=== PATIENT | female | born 1990 | race Caucasian/White ===

== ENCOUNTER 2019-11-05 08:26 | Outpatient (REF) | payer SELFPAY ==
[2019-11-05 09:05] LABS: Hepatitis B Surface AB. 14.9 (0-8.5)
[2019-11-05 09:06] LABS: Rubella IgG 69.1 IU/mL (0.0-9.0)
[2019-11-07 14:01] LABS: Quantiferon Nil 0.03 IU/mL; Quantiferon Plus TB1 0.01 IU/mL; Quantiferon Plus TB2 0.01 IU/mL; Quantiferon TB Gold NEGATIVE (NEGATIVE)
== END 2019-11-05 08:27 | disposition home or self-care (01) ==
LOC: LAB 08:26
PROVIDERS: Family Provider Nurse Practitioner; PCP Nurse Practitioner
DX: Z01.89 Encounter for other specified special examinations (principal)
CPT/HCPCS: 86480; 86706; 86735; 86762; 86765; 86787

== ENCOUNTER 2020-03-23 12:18 | Outpatient (CLI) | payer SELFPAY ==
--- NOTE | 2020-03-23 12:23 | XR_ITS ---
WS: [id number] LUMBAR SPINE TECHNIQUE: 3 views of the lumbar spine CLINICAL INFORMATION: ACUTE BACK PAIN/ACUTE SACROILITIS COMPARISON: None. FINDINGS: Mild lumbar curve convex left. Five [id number] lumbar vertebral bodies. Disc space heights are well preserved. No compression f ractures. No spondylolisthesis. Mild facet arthropathy L5-S1. Partially visualized acetabular repair. Visualized sacroiliac joints are normal. Normal visualized soft tissues. Partially visualized bowel g as pattern is normal. XR/XR lumbar spine 2-3V* [id number] IMPRESSION: 1. Mild lumbar curve convex left. Lumbar spine is unremarkable. 2. Normal sacroiliac joints..
== END 2020-03-23 12:19 | disposition home or self-care (01) ==
LOC: RADWPI 12:21
PROVIDERS: Family Provider Electrodiagnostic Medicine; PCP Electrodiagnostic Medicine; Visit Provider Electrodiagnostic Medicine
DX: M54.9 Dorsalgia, unspecified (principal); M46.1 Sacroiliitis, not elsewhere classified
CPT/HCPCS: 72100

== ENCOUNTER → 2020-05-04 09:47 | Outpatient (BNVA) | payer SELFPAY | PROVIDERS: Family Provider Electrodiagnostic Medicine; PCP Electrodiagnostic Medicine; Visit Provider Obstetrics & Gynecology | DX: Z12.4 Encounter for screening for malignant neoplasm of cervix (principal); R10.31 Right lower quadrant pain | CPT/HCPCS: 88175 ==

== ENCOUNTER → 2020-06-27 15:11 | Outpatient (BNVA) | payer SELFPAY | PROVIDERS: Family Provider Electrodiagnostic Medicine; PCP Electrodiagnostic Medicine; Visit Provider Obstetrics & Gynecology | DX: N84.0 Polyp of corpus uteri (principal); N83.201 Unspecified ovarian cyst, right side | CPT/HCPCS: 76830 ==

== ENCOUNTER 2020-07-01 17:41 | Emergency (ER) | payer SELFPAY ==
[2020-07-01 18:04] VITALS: BP 144/91; PULSE 84; RESP 18; TEMP 37.1; O2SAT 98; BMI 34.9
[2020-07-01 20:11] LABS: Add Urine Microscopic? NO
[2020-07-01 20:12] LABS: Basophils % 0.3 %; Eosinophils # 0.2 10^3/uL (0.0-0.8); Eosinophils % 2.9 %; Hemoglobin 12.3 g/dL (11.5-15.3); Lymphocytes # 2.2 10^3/uL (0.8-4.8); Lymphocytes % 29.1 %; Mean Corpuscular HGB Conc 32.4 g/dL (30.0-36.0); Mean Corpuscular Hemoglobin 27.5 pg (28.0-34.0); Mean Platelet Volume 11.3 fL (7.4-10.4); Monocytes # 0.5 10^3/uL (0.2-0.9); Monocytes % 6.8 %; Neutrophils # 4.52 10^3/uL (1.8-7.7); Neutrophils % 60.6 %; Nucleated Red Blood Cells % 0 %; Platelet Count 287 10^3/cmm (130-400); Red Blood Count 4.47 10^6/uL (4.1-5.3); Red Cell Distribution Width 13.9 % (12.1-15.1); White Blood Count 7.5 10^3/uL (4.0-10.0)
[2020-07-01 20:14] LABS: Bilirubin Urine Neg (Negative); Blood Urine Neg (Negative); Glucose Urine UA Norm (Normal); Ketones Urine Negative (Negative); Leukocyte Esterase Urine Negative (Negative); Nitrate Urine Negative (Negative); Protein Urine Neg (Negative); Specific Gravity, Urine 1.015 (1.005-1.030); Urine Appearance Clear (CLEAR); Urine Color Yellow (Yellow); Urobilinogen Urine 1 mg/dL (Negative); pH Urine 7 (5-7)
--- NOTE | 2020-07-01 20:16 | CTR_ITS ---
PROCEDURE INFORMATION: Exam: CT Abdomen And Pelvis With Contrast Exam date and time: 07/01/2020 8:50 PM Age: 30 years old Clinical indication: Abdominal pain; Localized; Right lower quadrant (rlq); Prior surgery; Surgery type: Csection. Pelvic fixation; Patient HX: Transient rlq pain. ; Additional info: Abd pain TECHNIQUE: Imaging protocol: Computed tomography of the abdomen and pelvis with intravenous contrast. Axial, coronal and sagittal reformatted images were created and reviewed. Radiation optimization: All CT scans at this facility use at least one of these dose optimization techniques: automated exposure control; mA and/or kV adjustment per patient size (includes targeted exams where dose is matched to clinical indication); or iterative reconstruction. Contrast material: OMNI 300; Contrast volume: 95 ml; Contrast route: INTRAVENOUS (IV); COMPARISON: CT abdomen pelvis w con* [id number] 08/16/2014 11:16 PM RADIATION DOSE METRICS: Total DLP (mGy-cm): 1523.16 FINDINGS: Liver: Mild hepatomegaly. Mild hepatic steatosis. Gallbladder and bile ducts: No radiodense gallstones. No biliary ductal dilatation. Pancreas: Unremarkable. Spleen: Unremarkable. Adrenals: Unremarkable. Kidneys and ureters: 1.2 cm simple left renal cyst (no follow-up is indicated based on the imaging appearance). No radiodense calculi. No hydronephrosis. Stomach and bowel: No bowel wall thickening. No obstruction. No pneumatosis. Appendix: Normal. Intraperitoneal space: No free fluid. No organized fluid collection. No free air. Vasculature: Unremarkable. No aneurysm. Lymph nodes: No pathologically enlarged lymph nodes. Urinary bladder: Unremarkable as visualized. Reproductive: Unremarkable. Bones/joints: No acute osseous abnormality. Soft tissues: Unremarkable. CT/CT abdomen pelvis w con* [id number]: 1[address] No CT evidence of acute intra-abdominal or pelvic pathology. 2. Additional findings, as above. COMMENTS: Consistent with the [place]'s Incidental Findings Committee white paper (J Am Eliseo Radiol 2018): Any incidental renal lesion less than 1 cm or classified as too small to characterize, or any incidental cystic renal lesion characterized as simple-appearing, is likely benign. No follow-up imaging is recommended for these lesions per consensus recommendations based on imaging criteria. Radiation Dose CTDIVOL = (mGy): DLP = 1523.16 (mGy-cm)
[2020-07-01 20:28] LABS: Alanine Aminotransferase 39 U/L (0-33); Albumin Level 4.7 g/dL (3.5-5.2); Alkaline Phosphatase 98 IU/L (35-105); Anion Gap 14.7 (5-19); Aspartate Amino Transferase 31 U/L (0-32); Blood Urea Nitrogen 10 mg/dL (6-20); Calcium 9.9 mg/dL (8.5-10.5); Carbon Dioxide 27 mmol/L (22-29); Chloride 100 mmol/L (98-107); Glomerular Filtration Rate 117.4 mL/min (90-130); Glucose 95 mg/dL (65-115); Lipase 42 U/L (13-60); Osmolality Calculated 285 mOsm/kg (285-295); Potassium 3.7 mmol/L (3.5-5.1); Sodium 138 mmol/L (136-145); Total Bilirubin 0.2 mg/dL (0.15-1.2); Total Protein 7.7 g/dL (6.6-8.7)
[2020-07-01 20:29] LABS: HCG, Serum Qual Negative (Negative)
[2020-07-01 20:31] VITALS: RESP 16
[2020-07-01] MEDS: ondansetron 2 mg/ML SDV 2 mL 4 MG IVP (20:31)
[2020-07-01] MEDS: morphine 4 mg/mL SDV 1 mL IVP ×2 (20:31→21:43)
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
[2020-07-01] MEDS: iohexol 300 mg/mL 100 mL Btl IV (20:51)
[2020-07-01 21:43] VITALS: RESP 16
[2020-07-01 21:44] VITALS: BP 132/82; PULSE 77; RESP 16; O2SAT 99
--- NOTE | 2020-07-04 10:24 | DCPLANNER ---
zone manager had message to schedule a follow up appointment for patient with general surgery. zone manager called [facility], spoke with Twyla, gave clinic patients information. zone manager was told that patients information would be printed off and reviewed. Clinic will call patient with appointment information.
--- NOTE | 2020-07-05 08:19 | DCPLANNER ---
Patient has a follow up appointment scheduled for June at 10:[address] Gracia. Clinic will call patient with appointment information.
--- NOTE | 2020-07-22 17:37 | DCPLANNER ---
Patient had a follow up appointment scheduled for 07.07.20 with [facility] - patient did attend appointment.
== END 2020-07-01 21:48 | disposition home or self-care (01) ==
PROVIDERS: Emergency Provider Emergency Medicine; PCP Electrodiagnostic Medicine
DX: R10.31 Right lower quadrant pain (principal); I10 Essential (primary) hypertension
CPT/HCPCS: 12345; 74177; 80053; 81003; 83690; 84703; 85025; 96374; 96375; 96376; 99283; J2270; J2405; Q9967

== ENCOUNTER → 2020-07-26 09:59 | Outpatient (BNVA) | payer OTHER, SELFPAY | PROVIDERS: PCP Electrodiagnostic Medicine; Visit Provider Electrodiagnostic Medicine | DX: Z11.59 Encounter for screening for other viral diseases (principal); R10.31 Right lower quadrant pain | CPT/HCPCS: 87635 ==

== ENCOUNTER → 2020-12-20 09:30 | Outpatient (BNVA) | payer MEDICAID, SELFPAY | PROVIDERS: PCP Electrodiagnostic Medicine; Visit Provider Nurse Practitioner Women's Health | DX: O09.91 Supervision of high risk pregnancy, unspecified, first trimester (principal); O10.919 Unspecified pre-existing hypertension complicating pregnancy, unspecified trimester; O34.219 Maternal care for unspecified type scar from previous cesarean delivery; O99.340 Other mental disorders complicating pregnancy, unspecified trimester; F41.9 Anxiety disorder, unspecified; F32.9 Major depressive disorder, single episode, unspecified; O09.899 Supervision of other high risk pregnancies, unspecified trimester; O21.9 Vomiting of pregnancy, unspecified; O99.211 Obesity complicating pregnancy, first trimester | CPT/HCPCS: 84315; 84702; 87086 ==

== ENCOUNTER → 2020-12-26 00:01 | Outpatient (BNVA) | payer MEDICAID, SELFPAY | PROVIDERS: PCP Electrodiagnostic Medicine; Visit Provider Obstetrics & Gynecology | DX: O10.919 Unspecified pre-existing hypertension complicating pregnancy, unspecified trimester (principal); Z3A.00 Weeks of gestation of pregnancy not specified | CPT/HCPCS: 84156 ==

== ENCOUNTER → 2020-12-28 15:25 | Outpatient (BNVA) | payer MEDICAID, SELFPAY | PROVIDERS: PCP Electrodiagnostic Medicine; Visit Provider Obstetrics & Gynecology | DX: O21.9 Vomiting of pregnancy, unspecified (principal); O10.919 Unspecified pre-existing hypertension complicating pregnancy, unspecified trimester; O09.91 Supervision of high risk pregnancy, unspecified, first trimester; Z3A.00 Weeks of gestation of pregnancy not specified | CPT/HCPCS: 80053; 80307; 82570; 84156; 84315; 84443; 84550; 85027; 86592; 86762; 86803; 86850; 86900; 87340 ==

== ENCOUNTER → 2021-01-04 07:52 | Outpatient (BNVA) | payer MEDICAID, SELFPAY | PROVIDERS: PCP Electrodiagnostic Medicine; Visit Provider Obstetrics & Gynecology | DX: O09.91 Supervision of high risk pregnancy, unspecified, first trimester (principal); O21.9 Vomiting of pregnancy, unspecified; O99.211 Obesity complicating pregnancy, first trimester; O99.340 Other mental disorders complicating pregnancy, unspecified trimester; F32.9 Major depressive disorder, single episode, unspecified; O34.219 Maternal care for unspecified type scar from previous cesarean delivery; O10.919 Unspecified pre-existing hypertension complicating pregnancy, unspecified trimester; O99.019 Anemia complicating pregnancy, unspecified trimester; O10.911 Unspecified pre-existing hypertension complicating pregnancy, first trimester; O99.011 Anemia complicating pregnancy, first trimester; Z3A.13 13 weeks gestation of pregnancy | CPT/HCPCS: 82950; 84132; 84315; 87491; 87591 ==

== ENCOUNTER → 2021-01-17 12:18 | Outpatient (BNVA) | payer BC, MEDICAID, SELFPAY | PROVIDERS: PCP Electrodiagnostic Medicine; Visit Provider Obstetrics & Gynecology | DX: O10.919 Unspecified pre-existing hypertension complicating pregnancy, unspecified trimester (principal); O99.019 Anemia complicating pregnancy, unspecified trimester; D64.9 Anemia, unspecified; O99.211 Obesity complicating pregnancy, first trimester; E66.9 Obesity, unspecified; O09.91 Supervision of high risk pregnancy, unspecified, first trimester; O99.340 Other mental disorders complicating pregnancy, unspecified trimester; F32.9 Major depressive disorder, single episode, unspecified; O34.219 Maternal care for unspecified type scar from previous cesarean delivery; Z3A.00 Weeks of gestation of pregnancy not specified | CPT/HCPCS: 81000 ==

== ENCOUNTER 2021-01-27 13:52 | Outpatient (CLI) | payer BC, MEDICAID, SELFPAY ==
--- NOTE | 2021-01-27 14:15 | USCV_ITS ---
Ruth Murphy Age: 30 Gender: F : 1990 Exam Date: 01/27/2021 14:34 Ordering Phys: Cordell Tucker MD Technologist: Radha Kinsey Exam Location: [facility] Indication: UNSPECIFIED PRE EXISTING HYPERTENSION BP: 120 / 70 HR: 79 Rhythm: Sinus Technical Quality: Adequate MEASUREMENTS (Male / Female) Normal Values 2D ECHO LV Diastolic Diameter PLAX 4.3 cm 4.2 - 5.9 / 3.9 - 5.3 cm LV Systolic Diameter PLAX 2.9 cm IVS Diastolic Thickness 1.3 cm 0.6 - 1.0 / 0.6 - 0.9 cm IVS Systolic Thickness 1.7 cm LVPW Diastolic Thickness 1.5 cm 0.6 - 1.0 / 0.6 - 0.9 cm LVPW Systolic Thickness 1.7 cm LVOT Diameter 2.0 cm LV Ejection Fraction 2D Teich 62.4 % LV Ejection Fraction MOD 2C 70.8 % LV Ejection Fraction 2C AL 70.5 % LA Diameter 3.1 cm LA Width 3.9 cm LA Height 4.8 cm RA Width 3.1 cm RA Height 4.4 cm Aorta at Sinotubular Diameter 2.7 cm M-MODE LV Diastolic Diameter MM 3.9 cm 4.2 - 5.9 / 3.9 - 5.3 cm LV Systolic Diameter MM 2.9 cm LV Ejection Fraction MM Teich 49.7 % IVS Diastolic Thickness MM 4.6 cm 0.6 - 1.0 / 0.6 - 0.9 cm IVS Systolic Thickness MM 1.8 cm LVPW Diastolic Thickness MM 0.8 cm 0.6 - 1.0 / 0.6 - 0.9 cm LVPW Systolic Thickness MM 2.1 cm Aortic Annulus Diameter 2.7 cm LA Ao Ratio MM 1.3 MV E Point Septal Separation 0.4 cm DOPPLER AV Peak Velocity 157.0 cm/s LVOT Peak Velocity 158.3 cm/s AV Area Cont Eq vti 1.8 cm squared AV Area Cont Eq pk 3.2 cm squared MV Area PHT 5.0 cm squared Mitral E to A Ratio 1.3 MV E' Velocity 52.0 cm/s Mitral E to MV E' Ratio 6.1 Mitral E to LV E' Lateral Ratio 5.6 Mitral E to LV E' Septal Ratio 6.6 TR Peak Velocity 340.0 cm/s TR Peak Gradient 46.2 mmHg TV Peak E Velocity 97.0 cm/s Right Atrial Pressure 3.0 mmHg Pulmonary Artery Systolic Pressu 49.2 mmHg PV Peak Velocity 88.0 cm/s RV Acceleration Time 0.1 s RV Ejection Time 0.3 s RV AcT/ET 0.3 FINDINGS Left Ventricle Normal left ventricular cavity size. Normal left ventricular systolic function. No regional wall motion abnormalities. Left ventricular ejection fraction is estimated at 62 %. Normal diastolic function. Right Ventricle The right ventricle is normal in size and function. Right Atrium The right atrium is normal in size. Left Atrium The left atrium is normal in size. Mitral Valve Structurally normal mitral valve without significant stenosis or prolapse. There is no mitral regurgitation. Aortic Valve Mild aortic valve calcification. No aortic valve stenosis. No aortic valve regurgitation. Tricuspid Valve Structurally normal tricuspid valve without significant stenosis or regurgitation. Pulmonary artery systolic pressure is normal. Pulmonic Valve Structurally normal pulmonic valve without significant stenosis. There is no pulmonic regurgitation. Pericardium Normal pericardium without effusion. Aorta Normal ascending aorta dimension. CONCLUSIONS 1-Normal left ventricular cavity size. Normal left ventricular systolic function. No regional wall motion abnormalities. Left ventricular ejection fraction is estimated at 62 %. Normal diastolic function. 2-Mild aortic valve calcification. No aortic valve stenosis. No aortic valve regurgitation. 3-There is no pericardial effusion. 4-Right atrial pressure is around 5 mm of mercury. 5-There are no prior echocardiogram studies to compare. Cipriano Bell MD (Electronically Signed) Final Date: 07 Feb 2021 22:26 S
--- NOTE | 2021-01-27 15:18 | ECG_ITS ---
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 Measurements Intervals [place] Rate: 82 P: 37 MS: 152 QRS: 34 QRSD: 81 T: 41 QT: 366 QTc: 430 Interpretive Statements SINUS RHYTHM INTERPRETATION BASED ON A DEFAULT AGE OF 40 YEARS Compared to ECG 03/11/2015 14:50:45 Sinus arrhythmia no longer present Electronically Signed On 01-27-2021 19:16:30 CDT by Clifton García M.D. [email or web address]
== END 2021-01-27 13:53 | disposition home or self-care (01) ==
LOC: US 13:57
PROVIDERS: PCP Electrodiagnostic Medicine; Visit Provider Obstetrics & Gynecology
DX: O10.919 Unspecified pre-existing hypertension complicating pregnancy, unspecified trimester (principal); Z3A.00 Weeks of gestation of pregnancy not specified
CPT/HCPCS: 81000; 93005; 93306

== ENCOUNTER → 2021-03-01 10:32 | Outpatient (BNVA) | payer BC, MEDICAID, SELFPAY | PROVIDERS: PCP Electrodiagnostic Medicine; Visit Provider Obstetrics & Gynecology | DX: O09.91 Supervision of high risk pregnancy, unspecified, first trimester (principal); Z3A.00 Weeks of gestation of pregnancy not specified | CPT/HCPCS: 81000 ==

== ENCOUNTER → 2021-03-27 08:06 | Outpatient (BNVA) | payer BC, MEDICAID, SELFPAY | PROVIDERS: PCP Electrodiagnostic Medicine; Visit Provider Obstetrics & Gynecology | DX: O10.919 Unspecified pre-existing hypertension complicating pregnancy, unspecified trimester (principal); O99.340 Other mental disorders complicating pregnancy, unspecified trimester; F32.9 Major depressive disorder, single episode, unspecified; O99.019 Anemia complicating pregnancy, unspecified trimester; D64.9 Anemia, unspecified; O99.211 Obesity complicating pregnancy, first trimester; E66.9 Obesity, unspecified; Z3A.00 Weeks of gestation of pregnancy not specified | CPT/HCPCS: 81000; 87086 ==

== ENCOUNTER → 2021-04-25 09:45 | Outpatient (BNVA) | payer BC, MEDICAID, SELFPAY | PROVIDERS: PCP Electrodiagnostic Medicine; Visit Provider Obstetrics & Gynecology | DX: O09.91 Supervision of high risk pregnancy, unspecified, first trimester (principal); O10.919 Unspecified pre-existing hypertension complicating pregnancy, unspecified trimester; Z3A.00 Weeks of gestation of pregnancy not specified | CPT/HCPCS: 80053; 81000; 82570; 82950; 84156; 84550; 85025 ==

== ENCOUNTER → 2021-05-01 08:17 | Outpatient (BNVA) | payer BC, MEDICAID, SELFPAY | PROVIDERS: PCP Electrodiagnostic Medicine; Visit Provider Obstetrics & Gynecology | DX: O09.91 Supervision of high risk pregnancy, unspecified, first trimester (principal); O99.019 Anemia complicating pregnancy, unspecified trimester; Z3A.00 Weeks of gestation of pregnancy not specified | CPT/HCPCS: 81000; 82951; 82952 ==

== ENCOUNTER → 2021-05-08 10:53 | Outpatient (BNVA) | payer BC, MEDICAID, SELFPAY | PROVIDERS: PCP Electrodiagnostic Medicine; Visit Provider Obstetrics & Gynecology | DX: O09.91 Supervision of high risk pregnancy, unspecified, first trimester (principal); Z3A.00 Weeks of gestation of pregnancy not specified | CPT/HCPCS: 81000; 84146 ==

== ENCOUNTER → 2021-05-22 09:17 | Outpatient (BNVA) | payer BC, MEDICAID, SELFPAY | PROVIDERS: PCP Electrodiagnostic Medicine; Visit Provider Obstetrics & Gynecology | DX: O09.91 Supervision of high risk pregnancy, unspecified, first trimester (principal); O10.919 Unspecified pre-existing hypertension complicating pregnancy, unspecified trimester; Z30.2 Encounter for sterilization; D35.2 Benign neoplasm of pituitary gland; O99.019 Anemia complicating pregnancy, unspecified trimester; O99.211 Obesity complicating pregnancy, first trimester; O99.340 Other mental disorders complicating pregnancy, unspecified trimester; F32.9 Major depressive disorder, single episode, unspecified; O34.219 Maternal care for unspecified type scar from previous cesarean delivery; Z3A.00 Weeks of gestation of pregnancy not specified | CPT/HCPCS: 81000 ==

== ENCOUNTER → 2021-05-29 08:29 | Outpatient (BNVA) | payer BC, MEDICAID, SELFPAY | PROVIDERS: PCP Electrodiagnostic Medicine; Visit Provider Obstetrics & Gynecology | DX: O10.919 Unspecified pre-existing hypertension complicating pregnancy, unspecified trimester (principal); Z3A.00 Weeks of gestation of pregnancy not specified | CPT/HCPCS: 81000 ==

== ENCOUNTER → 2021-06-07 16:30 | Outpatient (BNVA) | payer BC, MEDICAID, SELFPAY | PROVIDERS: PCP Electrodiagnostic Medicine; Visit Provider Obstetrics & Gynecology | DX: O09.91 Supervision of high risk pregnancy, unspecified, first trimester (principal); O10.919 Unspecified pre-existing hypertension complicating pregnancy, unspecified trimester; Z20.822 Contact with and (suspected) exposure to COVID-19; Z3A.00 Weeks of gestation of pregnancy not specified | CPT/HCPCS: 81000; 87081; 87635 ==

== ENCOUNTER → 2021-06-12 09:22 | Outpatient (BNVA) | payer BC, MEDICAID, SELFPAY | PROVIDERS: PCP Electrodiagnostic Medicine; Visit Provider Obstetrics & Gynecology | DX: O09.91 Supervision of high risk pregnancy, unspecified, first trimester (principal); O10.919 Unspecified pre-existing hypertension complicating pregnancy, unspecified trimester; Z30.2 Encounter for sterilization; Z3A.00 Weeks of gestation of pregnancy not specified | CPT/HCPCS: 81000 ==

== ENCOUNTER → 2021-06-15 08:25 | Outpatient (BNVA) | payer BC, MEDICAID, SELFPAY | PROVIDERS: PCP Electrodiagnostic Medicine; Visit Provider Obstetrics & Gynecology | DX: O34.219 Maternal care for unspecified type scar from previous cesarean delivery (principal); O10.919 Unspecified pre-existing hypertension complicating pregnancy, unspecified trimester; Z3A.00 Weeks of gestation of pregnancy not specified | CPT/HCPCS: 87635 ==

== ENCOUNTER 2021-06-19 05:28 | Inpatient (IN) | payer BC, MEDICAID, SELFPAY ==
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
[2021-06-19] VITALS (29 sets, daily range): BP systolic 117–160; BP diastolic 72–98; PULSE 67–91; RESP 14–18; TEMP 36–36.7; O2SAT 95–99; BMI 38.8
[2021-06-19] MEDS: lactated ringers 1,000 ML 999 ML IV (05:42)
[2021-06-19 06:07] LABS: Basophils % 0.2 %; Eosinophils # 0.1 10^3/uL (0.0-0.8); Eosinophils % 1.2 %; Hematocrit 32.8 % (37.0-47.0); Lymphocytes # 2.3 10^3/uL (0.8-4.8); Lymphocytes % 21.8 %; Mean Corpuscular HGB Conc 33.5 g/dL (30.0-36.0); Mean Corpuscular Volume 89.4 fl (81-99); Mean Platelet Volume 11.3 fL (7.4-10.4); Monocytes # 0.4 10^3/uL (0.2-0.9); Monocytes % 4.2 %; Neutrophils # 7.44 10^3/uL (1.8-7.7); Neutrophils % 72.2 %; Nucleated Red Blood Cells % 0 %; Platelet Count 237 10^3/cmm (130-400); Red Blood Count 3.67 10^6/uL (4.1-5.3); Red Cell Distribution Width 14.2 % (12.1-15.1); White Blood Count 10.3 10^3/uL (4.0-10.0)
[2021-06-19 06:25] LABS: Add Urine Microscopic? YES; Bilirubin Urine Neg (Negative); Blood Urine Neg (Negative); Glucose Urine UA Norm (Normal); Ketones Urine Negative (Negative); Leukocyte Esterase Urine Negative (Negative); Nitrate Urine Negative (Negative); Protein Urine Trace (Negative); Urine Appearance Clear (CLEAR); Urine Color Yellow (Yellow); Urobilinogen Urine Norm (Negative); pH Urine 6 (5-7)
[2021-06-19 06:27] LABS: Alanine Aminotransferase 9 U/L (0-33); Albumin Level 3.7 g/dL (3.5-5.2); Alkaline Phosphatase 78 IU/L (35-105); Anion Gap 14.8 (5-19); Aspartate Amino Transferase 11 U/L (0-32); Blood Urea Nitrogen 8 mg/dL (6-20); Calcium 8.6 mg/dL (8.5-10.5); Carbon Dioxide 20 mmol/L (22-29); Chloride 105 mmol/L (98-107); Globulin 3.1 g/dL (1.3-4.6); Glomerular Filtration Rate 143.9 mL/min (90-130); Glucose 102 mg/dL (65-115); Osmolality Calculated 281 mOsm/kg (285-295); Potassium 3.8 mmol/L (3.5-5.1); Sodium 136 mmol/L (136-145); Total Bilirubin 0.2 mg/dL (0.15-1.2); Total Protein 6.8 g/dL (6.6-8.7); Uric Acid 4.5 mg/dL (2.4-5.7)
[2021-06-19 06:30] LABS: Bacteria Urine 2+ /hpf; RBC Urine 0-4 /hpf (0-2); Squamous Epithelial Cell Urine 25-40 /hpf (0-5); WBC Urine 0-4 /hpf (0-5)
[2021-06-19 06:31] LABS: Add Urine Culture? No; Hyaline Casts Urine 0-4 /lpf; Mucus Urine 2+ /hpf
[2021-06-19 06:41] LABS: Urine Creatinine 209 mg/dL (28-217)
[2021-06-19 06:44] LABS: UPRO/UCREAT Ratio 0.18 mg/mg CR; Urine Protein Random 37 mg/dL
[2021-06-19] MEDS: citric acid-sodium citrate 30 mL UDC PO (06:49)
[2021-06-19] MEDS: metoclopramide 5 mg/mL SDV 2 mL 10 MG IVP (06:49)
[2021-06-19] MEDS: famotidine 20 mg/2 mL INJ IVP (06:49)
--- NOTE | 2021-06-19 06:53 | W.PM.OPSUD ---
Surgery/Procedure H&P Update DATE OF PROCEDURE: June 19, 2021 DATE H&P PERFORMED: 06/07/21 H&P UPDATE INFORMATION: I have reviewed H&P completed within last 30 days, I have examined patient prior to procedure, No changes to prior documentation and H&P is in [facility] EMR on date indicated PREOP DIAGNOSIS: IUP PLANNED PROCEDURE: Operation Date: 06/19/21 07:00 Proposed Procedures p Section Repeat With Tubal [id number] o34.219 Z30.2(Not Applicable) - Cordell Tucker MD
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
[2021-06-19] MEDS: dextrose 5%-lactated ringers 1,000 ML 125 ML IV ×2 (12:23→18:31)
--- NOTE | 2021-06-19 15:25 | ANE.PACU2 ---
Inpatient post-anesthesia follow up: Airway intact: Yes Vital signs: Temperature 98.0 F Pulse Rate 76 Respiratory Rate 15 Blood Pressure 150/91 Pulse Oximetry 97 Oxygen Delivery Me thod Room Air Oxygen Flow Rate Fraction of Inspir ed Oxygen Hydration adequate: Yes Nausea and vomiting: No Pain level: 2 Mental status: Baseline
[2021-06-19] MEDS: ibuprofen 800 mg tablet PO ×2 (16:47→21:12)
[2021-06-19] MEDS: labetalol 200 mg Tablet 300 MG PO (17:54)
[2021-06-19] MEDS: docusate sodium 100 mg Capsule PO (17:55)
[2021-06-19 20:47] LABS: Hematocrit 29.4 % (37.0-47.0); Hemoglobin 9.7 g/dL (11.5-15.3); Mean Corpuscular Hemoglobin 29.8 pg (28.0-34.0); Mean Corpuscular Volume 90.2 fl (81-99); Mean Platelet Volume 11.6 fL (7.4-10.4); Platelet Count 207 10^3/cmm (130-400); Red Blood Count 3.26 10^6/uL (4.1-5.3); Red Cell Distribution Width 14.4 % (12.1-15.1)
--- NOTE | 2021-06-19 21:57 | PC.NURSE ---
pt ambulated to bathroom and around nurses station once.
[2021-06-20] VITALS (7 sets, daily range): BP systolic 127–167; BP diastolic 76–99; PULSE 73–92; RESP 16–17; TEMP 36.7–36.9; O2SAT 95–98
[2021-06-20] MEDS: dextrose 5%-lactated ringers 1,000 ML 125 ML IV (02:48)
[2021-06-20] MEDS: HYDROcodone-acetaminophen 5-325 mg Tablet PO ×5 (04:20→23:21)
--- NOTE | 2021-06-20 06:05 | P.PN_ITS ---
Subjective Subjective: Interval history: SUBJECTIVE: Leonie is doing well today. Reports that when she woke up this morning she had a little bit of right shoulder pain but she is just taken pain medication and she states her pain is just minimal. She states that she has very minimal abdominal pain and the ibuprofen has been helping. She is ambulated well. She has not voided since catheter was removed and are at goal. She does report passing flatus but has not yet been given a regular diet. She denies any nausea vomiting fever chills shortness of breath and chest pain. She has had SCDs while in bed. She is breast-feeding without any difficulty and denies any preeclamptic symptoms. OBJECTIVE/PHYSICAL EXAM: Gen.: No acute distress Heart: S1-S2 heard, regular rate and rhythm Lungs: Clear to auscultation bilaterally Abdomen: Soft, fundus firm below umbilicus, tenderness around incision. Incision: Clean dry and intact with dressing in place. Legs: No calf tenderness, no pedal edema. ASSESSMENT AND PLAN: 31-year-old 4 para 3-1-0-3 status post repeat delivery and total salpingectomy for sterilization, postoperative day #1 -Continue routine postoperative care-ambulation and SCDs for DVT prophylaxis -Hemoglobin stable with appropriate white count. -Blood pressures overall normal for chronic hypertension--continue labetalol 300 mg twice daily for now -Patient is diuresed well and catheter has been [id number] voids. -Anticipate discharge home in the next couple of days when she recovers from surgery -Once patient voids and tolerates regular diet IV can be discontinued. -Incentive spirometer use encouraged -Circumcision planned by Dr. Alvarado Vitals/I&O/Wt Last Vital Signs Temp 98.4 F 06/20/21 03:16 Pulse 73 06/20/21 03:16 Resp 16 06/20/21 03:16 BP 151/87 06/20/21 03:16 Pulse Ox 95 06/20/21 00:00 06/19/21 06/19/21 06/20/21 14:59 22:59 06:59 Intake Total 2049 1466.667 / 3516.667 1000 / 4516.667 Output Total 1300 / 1300 600 / 1900 1150 / 3050 Balance 750 / 750 866.667 / 1616.667 -150 / 1466.667 Weight last 48 hrs Weight 263 lb Physical Exam Urinary Catheter Management^: Roth: Cath Placed During This Visit: yes, but has since been removed by the nurse Reason for Continuing Indwelling Catheter: Decision to DC Catheter Urinary Catheter Date of Insertion: 06/19/21 Urinary Catheter Time of Insertion: 07:05 Date Urinary Catheter Removed: 06/20/21 Time Urinary Catheter Discontinued: 04:20 Data : 06/19/21 20:07 06/19/21 05:43 Attestations Medical Necessity Statement*: Patient needs to stay to recover from surgery Coding Level of Care Code Acute Quality Assurance Intern for Thomas Costa
[2021-06-20] MEDS: ferrous sulfate EC 325 mg Tablet PO ×2 (07:47→17:06)
[2021-06-20] MEDS: prenatal vitamin Capsule 1 CAP PO (07:47)
[2021-06-20] MEDS: simethicone 80 mg Chew PO (07:54)
[2021-06-20] MEDS: labetalol 200 mg Tablet 300 MG PO ×2 (08:55→17:06)
[2021-06-20] MEDS: ibuprofen 800 mg tablet PO ×3 (08:55→21:28)
[2021-06-20] MEDS: escitalopram 10 mg Tablet 20 MG PO (08:55)
[2021-06-20] MEDS: docusate sodium 100 mg Capsule PO ×2 (08:55→17:06)
--- NOTE | 2021-06-20 20:25 | PC.NURSE ---
Patient up in rubin ambulating at this time. Patient completed 4 laps. Patient also asked if they wanted to watch the crib talk video tonight and patient requested that they watch it in the morning.
--- NOTE | 2021-06-21 04:30 | PC.NURSE ---
RN at bedside for rounding and assessed patients pain. Patient sitting up in bed watching tv and states that pain is a 4/10 and that the pain was in right shoulder. Patient requesting pain medication and RN asked patient if she needed 1 or 2 tablets. Patient requesting 1 tablet at this time.
[2021-06-21 04:32] VITALS: BP 172/102; PULSE 66; RESP 17; TEMP 36.7; O2SAT 98
[2021-06-21] MEDS: HYDROcodone-acetaminophen 5-325 mg Tablet PO ×3 (04:33→14:40)
--- NOTE | 2021-06-21 05:29 | CTR_ITS ---
PROCEDURE INFORMATION: Exam: CT Chest Without Contrast; Diagnostic Exam date and time: 06/21/2021 5:29 AM Age: 31 years old Clinical indication: Patient HX: C/O worsening RT upper chest wall pain with radiation into shoulder. ; Additional info: Shoulder pain TECHNIQUE: Imaging protocol: Diagnostic computed tomography of the chest without contrast. Total images: 262 Radiation optimization: All CT scans at this facility use at least one of these dose optimization techniques: automated exposure control; mA and/or kV adjustment per patient size (includes targeted exams where dose is matched to clinical indication); or iterative reconstruction. COMPARISON: [place] Chest 1 [place] [id number] 03/11/2015 3:36 PM RADIATION DOSE METRICS: Total DLP (mGy-cm): 887.89 FINDINGS: Lungs: Benign granulomatous disease of the lung is noted. Trace bibasilar atelectasis or scar. Pleural spaces: Trace pleural fluid on the left. Heart: Unremarkable. No cardiomegaly. No pericardial effusion. Aorta: Unremarkable. No aortic aneurysm. Lymph nodes: Calcified mediastinal and right hilar lymph nodes incidentally noted. Intraperitoneal space: Small amounts of free air present in the upper abdomen anterior to the liver. Bones/joints: Unremarkable. No acute fracture. Soft tissues: Unremarkable. CT/CT chest wo con [id number] IMPRESSION: 1. Trace pleural fluid on the left. 2. Trace bibasilar atelectasis or scar. 3. Small amounts of free air present in the upper abdomen anterior to the liver. Radiation Dose CTDIVOL = (mGy): DLP = 887.89 (mGy-cm)
[2021-06-21] MEDS: HYDROcodone-acetaminophen 5-325 mg Tablet 1 TAB PO (05:30)
--- NOTE | 2021-06-21 05:30 | PC.NURSE ---
Dr. Lopez at beside assessing patient. Informed that repeat blood pressure was needed. Md orders not to take blood pressure at this time due to patients elevated pain. MD orders for patient to have [place] 5/325mg 1 tablet now. MD informed that last pain medication was 0430 [place] 1 tablet 5/325mg. orders for a CT of the chest without contrast be ordered and that she will consult with the hospitalist customer resolution specialist and call RN with an update.
[2021-06-21 05:50] VITALS: RESP 17; O2SAT 98
--- NOTE | 2021-06-21 05:56 | PC.NURSE ---
Patient taken to CT via wheelchair in stable condition.
--- NOTE | 2021-06-21 06:12 | ECG_ITS ---
[facility] Test Date: 2021-06-21 Pat Name: Ruth Murphy Department: Room: OB11 Gender: Female Ware Tester: : 1990 Requested By: Cordell Tucker Order Number: [id number] Reading MD: Andrea Jesus M.D. Measurements Intervals [place] Rate: 69 P: 11 WY: 136 QRS: 44 QRSD: 83 T: 50 QT: 375 QTc: 404 Interpretive Statements SINUS RHYTHM Compared to ECG 01/27/2021 15:13:41 No significant changes Electronically Signed On 06-21-2021 23:48:53 CDT by Andrea Jesus M.D. [email or web address]
--- NOTE | 2021-06-21 06:19 | PC.NURSE ---
Respiratory at bedside for EKG at this time.
--- NOTE | 2021-06-21 08:18 | PC.NURSE ---
Dr Hunter in to see pt.
[2021-06-21] MEDS: prenatal vitamin Capsule 1 CAP PO (08:33)
[2021-06-21] MEDS: ferrous sulfate EC 325 mg Tablet PO (08:33)
[2021-06-21] MEDS: docusate sodium 100 mg Capsule PO (08:33)
[2021-06-21] MEDS: ibuprofen 800 mg tablet PO ×2 (08:33→14:39)
[2021-06-21] MEDS: escitalopram 10 mg Tablet 20 MG PO (08:34)
[2021-06-21] MEDS: labetalol 200 mg Tablet 300 MG PO (08:34)
[2021-06-21] MEDS: simethicone 80 mg Chew PO (08:38)
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
[2021-06-21 09:35] VITALS: BP 165/117; PULSE 81; RESP 18; TEMP 36.8; O2SAT 97
[2021-06-21 09:55] VITALS: BP 170/103; PULSE 81
[2021-06-21 10:57] VITALS: BP 156/89; PULSE 82
[2021-06-21 16:45] VITALS: BP 160/100; PULSE 84; RESP 18; TEMP 36.7; O2SAT 97
--- NOTE | 2021-06-21 16:49 | PM.OBGYDC ---
Discharge Providers HEALTH TECHNICIAN Date of Admission: 06/19/21 05:28 Date of Discharge: 06/21/21 Attending Provider at Admission: Cordell Tucker MD Attending Provider at Discharge: Cordell Tucker MD Primary Care Provider: - PRE-DELIVERY DIAGNOSIS: 31-year-old 4 para 2-1-0-2 at 37 weeks and 1 day gestation Previous delivery x1-desires repeat Multiparity-desires sterilization Chronic hypertension not well controlled on medication Intrauterine growth restriction Obesity with a BMI of 38 Anemia on iron Polyhydramnios Depression on medication POST-DELIVERY DIAGNOSIS: Status post repeat delivery due to salpingectomy for sterilization on 06/19/2021 Chronic hypertension on medication Shoulder pain-likely musculoskeletal status post negative work-up Anemia-stable Depression-on medication DELIVERING PHYSICIAN: Cordell Lopez FACOG PRE-DELIVERY COURSE: Ms. Jiménez is a 31-year-old 4 para 2-1-0-2 at 37 weeks and 1 day who presented to labor and delivery on 06/19/2021 for scheduled repeat delivery and sterilization. She denied any changes since I last saw her. Her history is significant for chronic hypertension that was not well controlled on medication and IUGR which is why her delivery was scheduled for 37 weeks. She denied any preeclamptic symptoms and preeclamptic lab work done at time of admission was negative. Covid was negative. HOSPITAL COURSE: She underwent an uncomplicated repeat delivery and total salpingectomy for sterilization on 06/19/2021. She did well on day 0 and was ambulating well, tolerating regular diet, voiding freely, passing flatus. She was bottlefeeding without difficulty and bonding well with her son. Circumcision was performed on him on day of life [address] Flores. Pain was well-controlled with by mouth pain medication. She denied nausea, vomiting, fever, chills, shortness of breath, leg pain. She had moderate vaginal bleeding. On day # 1 she continued to do well with stable vital signs and stable hemoglobin at 9.7. She did develop some right-sided shoulder pain that was thought to be musculoskeletal and she was put on [id number] anti-inflammatories. On postoperative day #2 she had worsening pain and medicine consult was called and they thought it was likely musculoskeletal. CT of the chest had been done which was negative and EKG was also negative. Her pain did improve during the course of the day and had almost completely resolved. She wanted to go home and did not want to be observed for another day. During her course her blood pressure remained largely in the 140s and 150s with occasional elevations in the 160s and 170s when she was in pain and when it is time for medication. She was continued on labetalol 300 mg 2 times a day. SCDs were continued for DVT prophylaxis.. She was discharged home on day 2 in a stable condition, as she desired early discharge. Warning signs for endometritis, wound infection, mastitis, DVT/PE were reviewed with her. Post delivery activity restrictions were also reviewed with her at all her questions were answered to her satisfaction. She is underwent sterilization for contraception EXAM AT DISCHARGE: Gen.: No acute distress Heart: S1-S2 heard, regular rate and rhythm Lungs: Clear to auscultation bilaterally Abdomen: Soft, fundus firm below umbilicus, tenderness around incision. Incision: Clean dry and intact with Steri-Strips. Legs: No calf tenderness, no pedal edema. CONDITION AT DISCHARGE: Stable This documentation was created by [employer] offal worker software (known for inherent offal worker error). Every effort was made to assure accuracy of offal worker. Any obvious errors or omissions should be clarified with the author of the document. Diagnoses at Discharge Discharge Diagnosis (1) Shoulder pain: Status: Acute Reason for Visit Reason for Visit: due date 06/19 Information Peripartum Data: Infant Delivery Method: Physical Exam Urinary Catheter Management^: Roth: Cath Placed During This Visit: yes, but has since been removed by the nurse Reason for Continuing Indwelling Catheter: Decision to DC Catheter Urinary Catheter Date of Insertion: 06/19/21 Urinary Catheter Time of Insertion: 07:05 Date Urinary Catheter Removed: 06/20/21 Time Urinary Catheter Discontinued: 04:20 Discharge Data Data Completed and Pending: Completed Studies During Hospitalization Category Date Time Status CT chest wo con 7 1250 Urgent Cat Scan 06/21/21 05:29 Completed Pathology: Surgic al [PTH] Routine Pth 06/19/21 10:48 Completed Vitals: Last Vital Signs Temp 98.3 F 06/21/21 09:35 Pulse 82 06/21/21 10:57 Resp 18 06/21/21 09:35 BP 156/89 06/21/21 10:57 Pulse Ox 97 09/22/21 09:35 Discharge Plan Discharge Patient Disposition: Home Condition: Stable Prescriptions: New hydrocodone-acetaminophen 5-325 mg tablet 1 tab PO Q6H Qty: 25 RF: 0 docusate sodium 100 mg Capsule 100 mg PO BID PRN (Reason: constipation) Qty: 30 RF: 0 labetalol 200 mg Tablet 300 mg PO BID Qty: 60 RF: 0 ibuprofen 800 mg tablet 800 mg PO Q8H Qty: 30 RF: 0 Continued prenat.vits,emilee,uvf-ievk-kfyht Tablet 1 tab PO DAILY RF: 0 escitalopram oxalate [Lexapro] 20 mg tablet 20 mg PO DAILY Qty: 30 RF: 3 Discontinued aspirin [Adult Low Dose Aspirin] 81 mg tablet,delayed release (DR/EC) 162 mg PO DAILY Qty: 90 RF: 2 ferrous sulfate 325 mg (65 mg iron) tablet 325 mg PO TID RF: 0 No Action labetalol 300 mg tablet 300 mg PO BID Qty: 60 RF: 3 Discharge Orders: Discharge Order (Routine); Ordered 06/21/21 Ordered By: Cordell Tucker Referrals: Cordell Tucker MD [Physician] - 06/27/21 11:00 am (Your blood pressure check is scheduled for 06/27/21 @11:00. Your 2 week incision check is scheduled for 07/03/21 @3:00. Your 6 week post- appointment is scheduled for 07/31/21 @3:00. ) Discharge Diet: Regular Discharge Activity: Limit activity as instructed Patient Instructions: Vitamins (By mouth), Depression (GEN), Pre-eclampsia and Eclampsia (DC), Bleeding (DC), OB [facility], OB Discharge Report, OB Food/Drug Interaction Guide, Opioid Safety, OB Home Care Activity Restrictions/Additional Instructions: Pelvic rest for 6 weeks, no heavy lifting for 6 weeks, 1 week blood pressure check, 2-week incision check in 6-week visit Discharge Attestations HEALTH TECHNICIAN Time Spent in Discharge Care*: greater than 30 min Coding Level of Care Code Acute Deputy Sheriff Generalist/Bailiff for [employer] Diagnoses Shoulder pain M25.519
== END 2021-06-21 18:45 | disposition home or self-care (01) | DRG 787 ==
PROVIDERS: Admitting Provider Obstetrics & Gynecology; PCP Electrodiagnostic Medicine; Visit Provider Obstetrics & Gynecology
PROC: 10D00Z1 Extraction of Products of Conception, Low, Open Approach (ICD-10-PCS; CPT 59514; principal; 2021-06-19 07:00)
DX: O34.219 Maternal care for unspecified type scar from previous cesarean delivery (principal); O10.92 Unspecified pre-existing hypertension complicating childbirth; O41.03X0 Oligohydramnios, third trimester, not applicable or unspecified; Z3A.37 37 weeks gestation of pregnancy; Z37.0 Single live birth; O99.344 Other mental disorders complicating childbirth; F41.8 Other specified anxiety disorders; O99.02 Anemia complicating childbirth; D64.9 Anemia, unspecified; O99.214 Obesity complicating childbirth; O36.5930 Maternal care for other known or suspected poor fetal growth, third trimester, not applicable or unspecified; O75.89 Other specified complications of labor and delivery; D35.2 Benign neoplasm of pituitary gland; M25.511 Pain in right shoulder
CPT/HCPCS: 51702; 58611; 59025; 59409; 71250; 80053; 81001; 82570; 84156; 84550; 85025; 85027; 86900; 88302; 88307; 93005; 96374; 99211; J0690; J2274; J2370; J2405; J2765; J3490; J7030

== ENCOUNTER → 2022-05-15 10:29 | Outpatient (BNVA) | payer BC, SELFPAY | PROVIDERS: PCP Electrodiagnostic Medicine; Visit Provider Registered Nurse | DX: I10 Essential (primary) hypertension (principal); E78.5 Hyperlipidemia, unspecified | CPT/HCPCS: 80053; 80061; 84443; 85025 ==

== ENCOUNTER 2022-05-20 19:32 | Emergency (ER) | payer BC, SELFPAY ==
[2022-05-20 19:46] VITALS: BP 170/96; PULSE 71; RESP 16; TEMP 36.8; O2SAT 97
--- NOTE | 2022-05-20 20:09 | XRR_ITS ---
PROCEDURE INFORMATION: Exam: XR Right Elbow Exam date and time: 05/20/2022 8:13 PM Age: 32 years old Clinical indication: Injury or trauma; Fall; Sprain or strain; Elbow; Right; Additional info: R arm injury TECHNIQUE: Imaging protocol: Radiologic exam of the Right elbow. Views: 1 or 2 views. COMPARISON: No relevant prior studies available. FINDINGS: Bones/joints: There is displacement of the anterior and posterior fat pads. There is deformity of the right radial head consistent with slightly depressed right radial head fracture. Soft tissues: Normal. XR/XR elbow RT 2V [id number] IMPRESSION: Right radial head fracture.
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
--- NOTE | 2022-05-20 20:24 | XRR_ITS ---
PROCEDURE INFORMATION: Exam: XR Right Humerus Exam date and time: 05/20/2022 8:29 PM Age: 32 years old Clinical indication: Injury or trauma; Fall; Sprain or strain; Humerus; Right; Additional info: Fall, arm pain TECHNIQUE: Imaging protocol: Radiologic exam of the Right humerus. Views: 2 or more views. COMPARISON: CR (UP EX, ) 05/20/2022 8:13 PM FINDINGS: Bones/joints: No fracture or dislocation is identified. The right radial head fracture described on the elbow views is not well seen on this exam. Soft tissues: Normal. XR/[place] [id number] IMPRESSION: Right humerus is intact.
[2022-05-20 20:34] VITALS: RESP 18
[2022-05-20] MEDS: morphine 4 mg/mL SDV 1 mL IM (20:34)
[2022-05-20 21:18] VITALS: RESP 18
[2022-05-20] MEDS: oxyCODONE 5 mg IR Tab/Cap PO (21:18)
[2022-05-20] MEDS: acetaminophen 500 mg Tablet 1000 MG PO (21:36)
[2022-05-20] MEDS: ketorolac 30 mg/mL INJ IM (21:37)
[2022-05-20] MEDS: oxyCODONE 5 mg IR Tab/Cap 20 MG PO (22:25)
--- NOTE | 2022-05-22 10:50 | DCPLANNER ---
Addendum entered by Sydnie Jewell 05/29/22 15:26: Patient had a follow up appointment scheduled for 05.25.22 with Genaro Wilson at ortho - patient did attend appointment. Original Note: manager internal had message to schedule a follow up appointment for patient with ortho. manager internal sent patients information to the front office staff at ortho. Patients information will be printed and reviewed. Clinic will call patient with appointment information.
== END 2022-05-20 22:28 | disposition home or self-care (01) ==
PROVIDERS: Emergency Provider Emergency Medicine; PCP Electrodiagnostic Medicine
DX: S52.121A Displaced fracture of head of right radius, initial encounter for closed fracture (principal); W17.89XA Other fall from one level to another, initial encounter; I10 Essential (primary) hypertension
CPT/HCPCS: 29105; 73060; 73070; 96372; 99284; J1885; J2270

== ENCOUNTER → 2022-06-08 11:05 | Outpatient (BNVA) | payer BC, SELFPAY | PROVIDERS: PCP Electrodiagnostic Medicine; Visit Provider Nurse Practitioner Family | DX: S52.124A Nondisplaced fracture of head of right radius, initial encounter for closed fracture (principal); X58.XXXA Exposure to other specified factors, initial encounter | CPT/HCPCS: 73080 ==

== ENCOUNTER 2023-04-27 22:29 | Emergency (ER) | payer BC, MEDICAID, SELFPAY ==
[2023-04-27 22:35] VITALS: BP 172/115; PULSE 83; RESP 20; TEMP 36.9; O2SAT 99; BMI 35.7
--- NOTE | 2023-04-27 22:49 | XRR_ITS ---
PROCEDURE INFORMATION: Exam: XR Chest Exam date and time: 04/27/2023 11:09 PM Age: 33 years old Clinical indication: Pain; Chest pressure; Additional info: Cp TECHNIQUE: Imaging protocol: Radiologic exam of the chest. Views: 1 view. COMPARISON: CT chest con [id number] 06/21/2021 5:57 AM FINDINGS: Lungs: A calcified granuloma is again seen in the right upper lobe. No acute airspace process is visualized. Pleural spaces: Unremarkable. No pleural effusion. No pneumothorax. Heart/Mediastinum: Unremarkable. No cardiomegaly. Bones/joints: Unremarkable. XR/XR chest 1V portable [id number] IMPRESSION: No acute cardiopulmonary abnormality.
[2023-04-27 23:00] VITALS: BP 173/114; PULSE 83; RESP 15; O2SAT 100
[2023-04-27] MEDS: amlodipine 10 mg Tablet PO (23:03)
[2023-04-27] MEDS: labetalol 5 mg/mL SDV 20mL 10 MG IVP (23:03)
[2023-04-27 23:07] LABS: Basophils % 0.5 %; Eosinophils # 0.1 10^3/uL (0.0-0.8); Eosinophils % 1.6 %; Hematocrit 33.9 % (37.0-47.0); Hemoglobin 10.4 g/dL (11.5-15.3); Lymphocytes % 34.5 %; Mean Corpuscular HGB Conc 30.7 g/dL (30.0-36.0); Mean Corpuscular Hemoglobin 23.3 pg (28.0-34.0); Mean Corpuscular Volume 75.8 fl (81-99); Mean Platelet Volume 9.9 fL (7.4-10.4); Monocytes # 0.5 10^3/uL (0.2-0.9); Monocytes % 5.1 %; Neutrophils # 5.08 10^3/uL (1.8-7.7); Nucleated Red Blood Cells % 0 %; Platelet Count 304 10^3/cmm (130-400); Red Blood Count 4.47 10^6/uL (4.1-5.3); Red Cell Distribution Width 15.3 % (12.1-15.1); White Blood Count 8.8 10^3/uL (4.0-10.0)
[2023-04-27 23:24] LABS: HCG, Serum Qual Negative (Negative)
[2023-04-27 23:35] LABS: Alanine Aminotransferase 14 U/L (0-33); Albumin Level 4.4 g/dL (3.5-5.2); Alkaline Phosphatase 97 U/L (35-105); Anion Gap 15.8 (5-19); Aspartate Amino Transferase 13 U/L (0-32); Blood Urea Nitrogen 12 mg/dL (6-20); Calcium 9.1 mg/dL (8.5-10.5); Carbon Dioxide 23 mmol/L (22-29); Chloride 103 mmol/L (98-107); Globulin 2.5 g/dL (1.3-4.6); Glomerular Filtration Rate 142.1 mL/min (90-130); Glucose 112 mg/dL (65-115); NT Pro B Type Natriuretic Pept 36 pg/mL (0-125); Osmolality Calculated 287 mOsm/kg (285-295); Potassium 3.8 mmol/L (3.5-5.1); Sodium 138 mmol/L (136-145); Total Bilirubin 0.2 mg/dL (0.15-1.2); Total Protein 6.9 g/dL (6.6-8.7)
[2023-04-27 23:38] LABS: Troponin(5th) Baseline 6 ng/L (0-10)
[2023-04-28] MEDS: nitroglycerin 0.4 mg sublingual Tablet SUBLINGUAL
[2023-04-28] MEDS: fentaNYL 50 mcg/mL INJ 2mL 100 MCG IVP (00:02)
[2023-04-28] MEDS: enalaprilat 1.25 mg/mL Inj IVP (00:02)
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
[2023-04-28] MEDS: ketorolac 30 mg/mL INJ IVP (00:47)
[2023-04-28 00:54] VITALS: BP 140/89; PULSE 70; RESP 18; O2SAT 97
== END 2023-04-28 01:10 | disposition home or self-care (01) ==
PROVIDERS: Emergency Provider Emergency Medicine; PCP Registered Nurse
DX: R07.9 Chest pain, unspecified (principal); I10 Essential (primary) hypertension
CPT/HCPCS: 71045; 80053; 83880; 84484; 84703; 85025; 96374; 96375; 99285; J1885; J3010; J3490

== ENCOUNTER → 2023-10-09 08:42 | Outpatient (BNVA) | payer BC, MEDICAID, SELFPAY | PROVIDERS: PCP Registered Nurse; Visit Provider Nurse Practitioner Women's Health | DX: N92.0 Excessive and frequent menstruation with regular cycle (principal) | CPT/HCPCS: 85025; 87624 ==

== ENCOUNTER → 2023-10-23 08:21 | Outpatient (BNVA) | payer BC, MEDICAID, SELFPAY | PROVIDERS: PCP Registered Nurse; Visit Provider Nurse Practitioner Women's Health | DX: N92.0 Excessive and frequent menstruation with regular cycle (principal) | CPT/HCPCS: 76830 ==

== ENCOUNTER 2023-10-25 14:08 | Outpatient (CLI) | payer BC, MEDICAID, SELFPAY ==
--- NOTE | 2023-10-25 14:14 | XR_ITS ---
WS: [id number] XR hip LT 2-3V wo/w pel* [id number] REASON FOR EXAM: M25.552 - Pain in left hip FINDINGS: Plate and screw fixation of the presumed previous posterior acetabular fracture. Mild narrowing of th e joint space with mild subchondral sclerosis and osteophytosis of the acetabulum. Left hip is unchanged compared to the previous examination of 02/02/2019. IMPRESSION: Stable left hip with previous fracture fixation of the acetabulum.
== END 2023-10-25 14:09 | disposition home or self-care (01) ==
LOC: RAD 14:09
PROVIDERS: PCP Registered Nurse; Visit Provider Registered Nurse
DX: M25.552 Pain in left hip (principal); Z87.81 Personal history of (healed) traumatic fracture; Z98.890 Other specified postprocedural states
CPT/HCPCS: 73502

== ENCOUNTER → 2023-10-29 08:40 | Outpatient (BNVA) | payer BC, MEDICAID, SELFPAY | PROVIDERS: PCP Registered Nurse; Visit Provider Nurse Practitioner Women's Health | DX: N93.9 Abnormal uterine and vaginal bleeding, unspecified (principal) | CPT/HCPCS: 88305 ==

== ENCOUNTER 2023-12-10 11:45 | Outpatient (CLI) | payer BC, MEDICAID, SELFPAY ==
--- NOTE | 2023-12-10 11:51 | XRR_ITS ---
PROCEDURE INFORMATION: Exam: XR Lumbosacral Spine Exam date and time: 12/10/2023 12:01 PM Age: 33 years old Clinical indication: Low back pain; Additional info: M54.50 - low back pain, unspecified TECHNIQUE: Imaging protocol: Radiologic exam of the lumbosacral spine. Views: 2 or 3 views. COMPARISON: CR XR lumbar spine 2-3V* [id number] 03/23/2020 12:29 PM FINDINGS: Bones/joints: Minimal multilevel spondylosis. Straightening of the normal lumbar lordosis. No acute fracture. Normal alignment. Postoperative changes in the left acetabulum. Mild degenerative changes of the sacroiliac joints and pubic symphysis. Soft tissues: Grossly unremarkable. XR/XR lumbar spine 2-3V* [id number] IMPRESSION: No acute radiographic findings.
--- NOTE | 2023-12-10 11:51 | XRR_ITS ---
PROCEDURE INFORMATION: Exam: XR Right Hip Exam date and time: 12/10/2023 12:01 PM Age: 33 years old Clinical indication: Hip pain; Right hip; Additional info: M25.551 - pain in right hip TECHNIQUE: Imaging protocol: Radiologic exam of the right hip. Views: 1 view hip with pelvis when performed. COMPARISON: CT abdomen pelvis w con* [id number] 07/01/2020 8:46 PM FINDINGS: Bones/joints: Unremarkable. No acute fracture. Soft tissues: Unremarkable. XR/XR hip RT 2-3V wo/w pel* [id number] IMPRESSION: No acute radiographic findings.
== END 2023-12-10 11:46 | disposition home or self-care (01) ==
LOC: RAD 11:48
PROVIDERS: PCP Registered Nurse; Visit Provider Registered Nurse
DX: M25.551 Pain in right hip (principal); G89.29 Other chronic pain; M54.50 Low back pain, unspecified
CPT/HCPCS: 72100; 73502

== ENCOUNTER 2024-03-24 14:17 | Observation (INO) | payer BC, MEDICAID, SELFPAY ==
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
[2024-03-16 10:41] LABS: Basophils % 0.3 %; Eosinophils # 0.1 10^3/uL (0.0-0.8); Lymphocytes # 1.8 10^3/uL (0.8-4.8); Mean Corpuscular HGB Conc 31.8 g/dL (30-55); Mean Corpuscular Hemoglobin 25.2 pg (27-33); Mean Corpuscular Volume 79.3 fl (85-98); Mean Platelet Volume 11.1 fL (7.4-10.4); Monocytes # 0.3 10^3/uL (0.2-0.9); Monocytes % 4.4 %; Neutrophils # 4.64 10^3/uL (1.8-7.7); Nucleated Red Blood Cells % 0 %; Platelet Count 293 10^3/cmm (157-399); Red Blood Count 4.29 10^6/uL (3.85-5.65); White Blood Count 6.82 10^3/uL (3.29-11.43)
[2024-03-16 10:59] LABS: Alanine Aminotransferase 15 U/L (0-33); Albumin Level 4.5 g/dL (3.5-5.2); Alkaline Phosphatase 108 U/L (35-105); Aspartate Amino Transferase 17 U/L (0-32); Blood Urea Nitrogen 7 mg/dL (6-20); Carbon Dioxide 24 mmol/L (22-29); Chloride 107 mmol/L (98-107); Globulin 2.9 g/dL (1.3-4.6); Glomerular Filtration Rate 183.8 mL/min (90-130); Glucose 125 mg/dL (65-115); Osmolality Calculated 293 mOsm/kg (285-295); Sodium 142 mmol/L (136-145); Total Bilirubin 0.3 mg/dL (0.15-1.2); Total Protein 7.4 g/dL (6.6-8.7)
[2024-03-16 11:00] LABS: OR HCG Qualitative Urine Negative (Negative)
[2024-03-16 11:21] LABS: Add Urine Microscopic? YES; Bilirubin Urine Neg (Negative); Blood Urine 2+ (Negative); Glucose Urine UA Norm (Normal); Ketones Urine Negative (Negative); Leukocyte Esterase Urine Negative (Negative); Nitrate Urine Negative (Negative); Protein Urine Neg (Negative); Urine Appearance Slightly Cloudy (CLEAR); Urine Color Yellow (Yellow); Urobilinogen Urine Neg (Negative); pH Urine 5 (5-7)
[2024-03-16 11:23] LABS: Bacteria Urine 2+ /hpf; Mucus Urine 2+ /hpf; RBC Urine 0-4 /hpf (0-2)
[2024-03-16 11:24] LABS: Add Urine Culture? No
[2024-03-24] VITALS (106 sets, daily range): BP systolic 105–151; BP diastolic 54–79; PULSE 70–101; RESP 15–18; TEMP 36.8–37.4; O2SAT 89–99; BMI 34.7
--- NOTE | 2024-03-24 11:18 | W.PM.OPSUD ---
Surgery/Procedure H&P Update DATE OF PROCEDURE: March 24, 2024 DATE H&P PERFORMED: 03/16/24 H&P UPDATE INFORMATION: I have reviewed H&P completed within last 30 days, I have examined patient prior to procedure and No changes to prior documentation PREOP DIAGNOSIS: menorrhagia PLANNED PROCEDURE: Operation Date: 03/24/24 12:35 Proposed Procedures p Laparoscopic Assist Vaginal Hysterectomy [id number], N92.0(Not Applicable) - Octavio Calhoun MD
[2024-03-24] MEDS: vancomycin 1,000 MG in sodium chloride 0.9% 250 ML 250 MG IV (11:35)
[2024-03-24] MEDS: sodium chloride 0.9% 1,000 ML 30 ML IV (11:36)
[2024-03-24] MEDS: scopolamine 1.5 Patch 1 PATCH TRANSDERMA (11:41)
--- NOTE | 2024-03-24 11:43 | P.ANESUD_ITS ---
Pre-Anesthetic Update Pre-Anesthetic Assessment: Date of Surgery/Procedure: 03/24/24 Preop Sophia gnosis: menorrhagia Proposed Procedure: Operation Date: 03/24/24 12:35 Proposed Procedures p Laparoscopic Assist Vaginal Hysterectomy 89204, N92.0(Not Applicable) - Octavio Calhoun MD Any changes to Pre-Anesthetic Assessment?: No Last Intake: Intake Last Liquid Date 03/23/24 Last Liquid Time 21:30 Last Solid Date 03/23/24 Last Solid Time 21:30 Vitals: Oxygen Delivery Me thod Room Air 03/24/24 11:24 Exam: Pre-Anes Outpt Exam: alert, oriented x 3, clear to auscultation bilaterally and regular rate & rhythm Cardiac Studies: Echocardiogram Ultrasound 01/27/21
[2024-03-24] MEDS: lidocaine-epi 2% PF 1:200,000 20 mL SDV XX (12:45)
[2024-03-24] MEDS: levofloxacin-dextrose 5 % 500 MG/100 ML PREMIX 100 MG IV (13:02)
--- NOTE | 2024-03-24 14:12 | P.OP_ITS ---
Operative Report Date of procedure: March 24, 2024 Pre-op diagnosis: Menorrhagia Post-op diagnosis: same Procedure done: Laparoscopic-assisted vaginal hysterectomy Specimens removed/disposition: Uterus Surgeon: Octavio Calhoun MD Estimated blood loss (mL): 260 IV fluids (mL): 1,100 Urine output (mL): 75 Procedure: After informed consent, the patient was taken to the operating room where ge neral anesthesia was administered. Pre-Procedure Time-Out verifying the correct patient identity, correct procedure verified with consent, correct site and side, correct patient position, availability of correct implants and any special equipment or requirements was performed and acknowledge by the OR team. She was placed in the dorsal lithotomy position and prepped and draped in sterile fashion. The patient was examined under anesthesia and found to have a normal uterus with normal adnexa. A Roth catheter was placed in the bladder. A weighted speculum was placed in the vagina, and the anterior lip of cervix was grasped with the single toothed tenaculum. A uterine manipulator was advanced into the endocervical. Tenaculum was removed after uterine manipulator was secured. The speculum was removed from the vagina. The attention was brought to abdomen after changing gloves. The base of the umbilicus was grasped with an Allis clamp and with 2 towel clamp bilaterally tenting up the umbilicus an intraumbilical incision was made with a scalpel. While tenting up on the abdomen, a Verres needle with sleeve was admitted into the intra-abdominal cavity. A saline drop test was performed and noted to be within normal limits. Pneumoperitoneum was attained with 4 liters of carbon dioxide. The Verres needle was removed. Then a 5 mm Optiview trocar and cannula were inserted under direct visualization without complications. Trocars were removed and the laparoscope was inserted and connected to the video camera light source. A 5 mm trocar and cannula were placed in the right lower quadrant under direct visualization after infiltration of 0.5% Marcaine with epinephrine. A 5 mm trocar and cannula were placed in the left lower quadrant under direct visualization after infiltration of 0.5% Marcaine with epinephrine. The pelvic contents were visualized and noted a small uterus, deep cul-de-sac, normal bilateral fallopian tubes and ovaries, normal appendix, and both ureters were identified crossing the pelvic brim and pelvic sidewall. The left round ligament was coagulated and transected using LigaSure device. The left broad ligament was opened down to the level of the uterine artery and vein. The left infundibulopelvic ligament was coagulated using LigaSure and then transected. The right round ligament was coagulated and transected using LigaSure, and the right broad ligament was opened down to the level of the right uterine artery and vein. The right infundibulopelvic ligament was coagulated and transected using LigaSure. Peritoneum of the lower uterine segment was entered using LIGASURE, and the bladder was dissected off the lower uterine segment using blunt dissection. Careful inspection revealed complete hemostasis. A weighted speculum was placed in the posterior vaginal wall and the right-angle retractor used to visualize the cervix. The cervix was grasped across the anterior lip with a single-toothed tenaculum and circumferentially infiltrated with 2% lidocaine with epinephrine at this time. The cervix was circumferentially excised with the scalpel. The vaginal mucosa was dissected superiorly with sharp dissection. The anterior peritoneal reflection was identified, and it was entered with Metzenbaum scissors. A posterior colpotomy was made through the cul-de-sac space. The posterior peritoneum was identified in similar fashion and Metzenbaum scissors were used to enter the cul-de-sac. At this time, a weighted speculum was placed, advanced posteriorly into the cul-de-sac. At this time, the left and right uterosacral ligaments were isolated and ligated with 0 Vicryl. The LigaSure device was then used in a serial fashion up through the cardinal ligaments bilaterally. Finally, the uterine arteries were cross-clamped, cut, and ligated with the LigaSure device. LigaSure device was then used up through the broad ligaments superiorly and finally the uterus was rotated posteriorly. The left and right tubes were then cross-clamped and ligated with LigaSure device. The uterus was excised and submitted for pathologic evaluation. At this time, Tanisha clamps were used to grasp the left and right ovaries, and they were removed per the patient's request. Curved Zeppelin clamps were placed across the infundibulopelvic ligaments bilaterally and curved scissors were used to excise the specimen from the Zeppelin clamp. The pedicles were doubly ligated bilaterally with 0 Vicryl and hemostasis noted to be achieved. No other abnormalities were noted in the pelvic cavity. At this time, instruments were removed from the patient's abdominopelvic cavity. Vaginal cuff closure and peritoneum were incorporated into one layer with 0 Vicryl suture in a continuous running interlocking fashion. Hemostasis was noted to be achieved. Roth catheter was then placed yielding clear yue urine. A vaginal packing with Premarin cream was placed to provide support during the healing process. The patient tolerated the procedure well and was taken to the recovery room in a stable condition. Sponge and needle counts were correct x3.
--- NOTE | 2024-03-24 14:14 | W.PM.BPON ---
Date of Procedure: 03/24/24 Surgeon: Octavio Calhoun MD Manufacturing Automation Engineer(s): Procedure(s) performed: Laparoscopic assisted vaginal hysterectomy Findings of the procedure(s): Enlarged uterus Estimated blood loss: 260 mL Specimen(s) removed: Uterus Post-operative diagnosis: Heavy menstrual bleeding
--- NOTE | 2024-03-24 14:55 | ANE.PACU2 ---
Inpatient post-anesthesia follow up: Airway intact: Yes Vital signs: Temperature 98.3 F Pulse Rate 63 Respiratory Rate 17 Blood Pressure 122/69 Pulse Oximetry 99 Oxygen Delivery Me thod Room Air Oxygen Flow Rate 6 Fraction of Inspir ed Oxygen Hydration adequate: Yes Nausea and vomiting: No Pain level: 1 Mental status: Baseline
[2024-03-24] MEDS: HYDROcodone-acetaminophen 5-325 mg Tablet PO ×2 (17:38→23:03)
[2024-03-24] MEDS: docusate sodium 100 mg Capsule PO (17:38)
[2024-03-24] MEDS: ketorolac 30 mg/mL INJ IVP (20:24)
[2024-03-24] MEDS: dextrose 5%-lactated ringers 1,000 ML 125 ML IV (22:26)
[2024-03-25 01:05] VITALS: BP 127/65; PULSE 72
[2024-03-25 03:05] VITALS: BP 131/64; PULSE 69
[2024-03-25] MEDS: ketorolac 30 mg/mL INJ IVP (03:12)
[2024-03-25 05:05] VITALS: BP 122/69; PULSE 63
[2024-03-25 06:13] LABS: Hematocrit 28.1 % (36-47); Mean Corpuscular HGB Conc 30.6 g/dL (30-55); Mean Corpuscular Hemoglobin 24.2 pg (27-33); Mean Corpuscular Volume 79.2 fl (85-98); Mean Platelet Volume 11.5 fL (7.4-10.4); Platelet Count 245 10^3/cmm (157-399); Red Blood Count 3.55 10^6/uL (3.85-5.65); Red Cell Distribution Width 14.1 % (12.1-15.1); White Blood Count 8.01 10^3/uL (3.29-11.43)
--- NOTE | 2024-03-25 08:10 | PM.OBGYDC ---
Discharge Providers TRUST VAULT CUSTODIAN Date of Admission: 03/24/24 14:17 Date of Discharge: 03/25/24 Attending Provider at Admission: Octavio Calhoun MD Attending Provider at Discharge: Octavio Calhoun MD Primary Care Provider: JIM Baxter Reason for Visit Reason for Visit: N92.0 Hospital Course Hospital Course Mrs. Price 33-year-old female with a history of abnormal uterine bleeding unresponsive to medical management. Admitted for planned laparoscopic assisted vaginal hysterectomy. The procedure was performed without complication. Overnight observation uneventful. She is afebrile hemodynamically stable postoperative day 1. Tolerating diet well. Ambulating without difficulty. She was counseled regarding pelvic rest for 6 weeks (no sex, no tampons, no vaginal douches). Return to the emergency room if any fever, increased bleeding or pain. Physical Exam Narrative: GA: Alert and oriented ?3. HEENT: WNL. Heart: Regular rate and rhythm. Lungs: Clear to auscultation bilaterally. Abdomen: Bowel sounds present, nontender, minimal tenderness, incision clean and dry, no redness, pain or edema. COMP FIELD CASE MANAGER: Spotting bleeding. Extremities: No edema, no cyanosis, no calves pain. Urinary Catheter Management: Roth: Cath Placed During This Visit: yes Urinary Catheter Date of Insertion: 03/24/24 Urinary Catheter Time of Insertion: 12:45 History History History 4 Term 3 1 Miscarriages/Ectopic 0 Living Children 3 Discharge Data Studies Completed and Pending Pending at discharge Category Date Time Status Pathology: Surgical [PTH] Routine Pth 03/24/24 14:13 Received Laboratory Results WBC 8.01 10^3/uL (3.29-11.43) 03/25/24 05:30 RBC 3.55 10^6/uL (3.85-5.65) L 03/25/24 05:30 Hgb 8.60 g/dL (11.27-16.99) L 03/25/24 05:30 Hct 28.1 % (36-47) L 03/25/24 05:30 MCV 79.2 fl (85-98) L 03/25/24 05:30 MCH 24.2 pg (27-33) L 03/25/24 05:30 MCHC 30.6 g/dL (30-55) 03/25/24 05:30 RDW 14.1 % (12.1-15.1) 03/25/24 05:30 Plt Count 245 10^3/cmm (157-399) 03/25/24 05:30 MPV 11.5 fL (7.4-10.4) H 03/25/24 05:30 Neut % (Auto) 68.0 % 03/16/24 10:15 Lymph % (Auto) 26.0 % 03/16/24 10:15 [place] % (Auto) 4.4 % 03/16/24 10:15 Eos % (Auto) 1.0 % 03/16/24 10:15 Baso % (Auto) 0.3 % 03/16/24 10:15 Neut # (Auto) 4.64 10^3/uL (1.8-7.7) 03/16/24 10:15 Lymph # (Auto) 1.8 10^3/uL (0.8-4.8) 03/16/24 10:15 [place] # (Auto) 0.3 10^3/uL (0.2-0.9) 03/16/24 10:15 Eos # (Auto) 0.1 10^3/uL (0.0-0.8) 03/16/24 10:15 Baso # (Auto) 0.0 10^3/uL (0.0-0.1) 03/16/24 10:15 Nucleated RBC % (auto) 0 % 03/16/24 10:15 Nucleated RBCs # 0.0 /100WBC 03/16/24 10:15 Sodium 142 mmol/L (136-145) 03/16/24 10:15 Potassium 4.0 mmol/L (3.5-5.1) 03/16/24 10:15 Chloride 107 mmol/L (98-107) 03/16/24 10:15 Carbon Dioxide 24 mmol/L (22-29) 03/16/24 10:15 Anion Gap 15.0 (5-19) 03/16/24 10:15 BUN 7 mg/dL (6-20) 03/16/24 10:15 Creatinine 0.4 mg/dL (0.5-0.9) L 03/16/24 10:15 GFR Calculation 183.8 mL/min (90-130) H 03/16/24 10:15 Glucose 125 mg/dL (65-115) H 03/16/24 10:15 Calculated Osmolality 293 mOsm/kg (285-295) 03/16/24 10:15 Calcium 9.0 mg/dL (8.5-10.5) 03/16/24 10:15 Total Bilirubin 0.3 mg/dL (0.15-1.2) 03/16/24 10:15 AST 17 U/L (0-32) 03/16/24 10:15 ALT 15 U/L (0-33) 03/16/24 10:15 Alkaline Phosphatase 108 U/L (35-105) H 03/16/24 10:15 Total Protein 7.4 g/dL (6.6-8.7) 03/16/24 10:15 Albumin 4.5 g/dL (3.5-5.2) 03/16/24 10:15 Globulin 2.9 g/dL (1.3-4.6) 03/16/24 10:15 Urine Color Yellow (Yellow) 03/16/24 10:00 Urine Appearance Slightly cloudy (CLEAR) 03/16/24 10:00 Urine pH 5 (5-7) 03/16/24 10:00 Ur Specific [place] 1.020 (1.005-1.030) 03/16/24 10:00 Urine Protein Neg (Negative) 03/16/24 10:00 Urine Glucose (UA) Norm (Normal) 03/16/24 10:00 Urine Ketones Negative (Negative) 03/16/24 10:00 Urine Blood 2+ (Negative) H 03/16/24 10:00 Urine Nitrate Negative (Negative) 03/16/24 10:00 Urine Bilirubin Neg (Negative) 03/16/24 10:00 Urine Urobilinogen Neg mg/dL (Negative) 03/16/24 10:00 Ur Leukocyte Esterase Negative (Negative) 03/16/24 10:00 Urine RBC 0-4 /hpf (0-2) H 03/16/24 10:00 Urine WBC 5-10 /hpf (0-5) H 03/16/24 10:00 Ur Squamous Epith Cells 10-15 /hpf (0-5) H 03/16/24 10:00 Amorphous Sediment Not Reportable 03/16/24 10:00 Urine Bacteria 2+ /hpf (NONE) H 03/16/24 10:00 Urine Mucus 2+ /hpf 03/16/24 10:00 Urine HCG, Qual Negative (Negative) 03/16/24 10:00 Blood Type B Positive 03/24/24 11:25 Rho(D) Type Rh positive 03/24/24 11:25 Antibody Screen Negative 03/24/24 11:25 Procedures Performed Laparoscopic assisted vaginal hysterectomy Vitals Last Vital Signs Temp 98.3 F 03/24/24 14:50 Pulse 63 03/25/24 05:05 Resp 17 03/24/24 14:50 BP 122/69 03/25/24 05:05 Pulse Ox 99 03/24/24 22:11 O2 Del Method Room Air 03/24/24 15:05 O2 Flow Rate 6 03/24/24 14:20 Results Labs OB ([facility]): Obstetrics US 12/28/20 Obstetrics US/Biophysical Profile 06/12/21 Blood Type B Positive 03/24/24 Antibody Screen Negative 03/24/24 Hct 28.1 % (36-47) L 03/25/24 Hgb 8.60 g/dL (11.27-16.99) L 03/25/24 Rho(D) Type Rh positive 03/24/24 Plt Count 245 10^3/cmm (157-399) 03/25/24 Hep Bs Antigen Non-reactive (Nonreactive) 12/28/20 Hep Bs Antibody 14.9 (0-8.5) H 11/04/19 Hepatitis C Antibody Non-reactive (Nonreactive) 12/28/20 Rubella IgG Antibody 52.1 IU/mL (0.0-10.0) H 12/28/20 RPR Nonreactive (Nonreactive) 12/28/20 TSH 1.14 uIU/mL (0.27-4.20) 05/15/22 Glucose 1 Hr 50 gm 82 mg/dL (85-140) L 01/04/21 Gest Glucose Tolerance mg/dL 05/01/21 Uric Acid 4.5 mg/dL (2.4-5.7) 06/19/21 VZV IgG Antibody 618.70 INDEX H 11/04/19 Ser , Semi-Qnt 99511.00 mIU/mL 12/20/20 HCG, Qual Negative (Negative) 04/27/23 Urine Opiates Screen Negative ng/mL (Negative) 12/28/20 Ur Barbiturates Screen Negative ng/mL (Negative) 12/28/20 Ur Phencyclidine Scrn Negative ng/mL (Negative) 12/28/20 Ur Amphetamines Screen Negative ng/mL (Negative) 12/28/20 U Benzodiazepines Scrn Negative ng/mL (Negative) 12/28/20 Urine Cocaine Screen Negative ng/mL (Negative) 12/28/20 U Marijuana (THC) Screen Negative ng/mL (Negative) 12/28/20 Micro Urine Specimen 03/27/21 Pap Smear Interpret See note 10/09/23 Prolactin 49.04 ng/mL (4.8-23.3) H 05/08/21 Discharge Plan Discharge Patient Disposition: Home Condition: Stable Prescriptions: New acetaminophen 325 mg capsule 325 mg PO Q4H PRN (Reason: fever or postoperative pain) Qty: 60 0RF ibuprofen 800 mg tablet 800 mg PO TID PRN (Reason: pain) Qty: 60 0RF hydrocodone-acetaminophen 5-325 mg tablet 1 tab PO Q4H PRN (Reason: pain) Qty: 20 0RF Iron (ferrous sulfate) 325 mg (65 mg iron) tablet 325 mg PO BID Qty: 60 0RF Colace 100 mg capsule 100 mg PO BID Qty: 60 0RF Continued lisinopril 20 mg tablet 20 mg PO DAILY 90 Days Qty: 180 0RF paroxetine HCl 30 mg tablet 30 mg PO DAILY Rx Instructions: Take 1 tablet by mouth once daily Discharge Orders: Discharge Order (Routine); Ordered 03/25/24 Ordered By: Octavio Calhoun Referrals: Octavio Calhoun MD [Physician] - 05/04/24 1:15 pm Rosenda Maldonado APN, ALCIDES [Nurse Practitioner] - 04/10/24 1:15 pm Discharge Diet: Usual diet Discharge Activity: Limit activity as instructed Patient Instructions: Acute Wound Care (DC), Laparoscopic Hysterectomy (GEN), OB Laproscopic Surgery - [facility], Opioid Safety, Post Anesthesia Care Activity Restrictions/Additional Instructions: 1. Please call [facility] on next working day to make your post-operative appointment in 2 weeks. 2. Please stay home until you come back to the clinic on first post-hospatilization check up. 3. Please follow instructions on your medications CAREFULLY. 4. If you have abdominal incision, do not cover it unless dressing is necessary because of drainage. OK to shower, but avoid bath. Leave steri-strips until they fall off. If they are still on one week after surgery, you may remove them. 5. If you had vaginal surgery or vaginal repair, Dr. Calhoun may instruct you to take SITZ bath. 6. Yellow, blood tinged odorous vaginal discharge is usually normal after hysterectomy or vaginal surgeries. 7. No SEXUAL INTERCOURSE, tampons, or douches until you are completely released from the post-operative care. 8. Avoid constipation by eating right and maybe using some Metamucil or Milk of Magnesia. 9. All prescription refills are given during the working hours. Please do no wait till it runs out. Call the clinic at [phone] before your medication runs out. The clinic will get in touch with your doctor to prescribe medications if necessary. 10. Please remain within 40 mile radius from our hospital because emergencies do happen now and then during the post-operative period. 11. If you have stairs at home, take one step at a time slowly and minimize the number of trips. It helps to stay in one floor for the next few days. No lifting except what you can lift by one hand until you are released from the post-operative care. 12. Driving is discouraged until you are well healed. It may be 3-4 weeks before you feel strong enough to drive. You should be able to turn and look through the rear window without pain and you should be able to push the brake pedal very hard without pain before you drive. No fast rules, but SAFETY should be your primary concern. DO NOT drive if you are on sedating medications such as narcotics. 13. Call the clinic (during working hours) to make urgent appointment or go to the Emergency room, if any of the following occurs: i. Vaginal bleeding becomes heavy, more than a period. ii. Incision becomes red and sore, or drains pus. iii. Your TEMPERATURE is over 100.4F or you have chill. iv. IV site becomes red and swollen (a little ``knot?? is usually OK) v. Persistent nausea and vomiting vi. Persistent constipation or diarrhea vii. Rash or allergic reaction to medications. Discharge Attestations TRUST VAULT CUSTODIAN Time Spent in Discharge Care*: greater than 30 min Coding Level of Care Code Acute Code for Chg Fwd
[2024-03-25 08:14] VITALS: BP 120/63; PULSE 70
[2024-03-25 08:15] VITALS: BP 120/63; PULSE 70; RESP 16; TEMP 36.8
== END 2024-03-25 08:25 | disposition home or self-care (01) ==
LOC: OBGYN 14:17
PROVIDERS: Admitting Provider Obstetrics & Gynecology; PCP Registered Nurse; Visit Provider Obstetrics & Gynecology
PROC: 0UT9FZZ Resection of Uterus, Via Natural or Artificial Opening With Percutaneous Endoscopic Assistance (ICD-10-PCS; CPT 58550; principal; 2024-03-24 12:25)
DX: N92.0 Excessive and frequent menstruation with regular cycle (principal); N72 Inflammatory disease of cervix uteri; I10 Essential (primary) hypertension
CPT/HCPCS: 58550; 36415; 80053; 81001; 81025; 85025; 85027; 86850; 86900; 88307; G0378; J0360; J1170; J1200; J1885; J1956; J2250; J2405; J2704; J2710; J3010; J3370; J3490; J7030; J7050; J7121

== ENCOUNTER 2024-07-01 08:40 | Outpatient (CLI) | payer BC, MEDICAID, SELFPAY ==
--- NOTE | 2024-07-01 08:45 | MR_ITS ---
WS: [id number] MRI LUMBAR SPINE NONCONTRAST TECHNIQUE: Sagittal T1, T2 and STIR imaging. Axial T1 and T2 imaging. CLINICAL INFORMATION: M51.16 - Intervertebral disc disorders with radiculopathy... COMPARISON: None. FINDINGS: Mild lumbar curve. No acute compression. Large disc protrusion L4-5. L1-L2: Normal. L2-L3: Normal. L3-L4: Mild annular bulging. Mild facet arthropathy. Spinal canal and foramen are patent. L4-L5: Large central disc protrusion with moderate to severe narrowing of the thecal sac. Impingement of the traversing L5 nerve roots. Slight anterolisthesis. Foramen are patent. Moderate facet arthrop athy. Disc material measures 7 x 12 mm AP by craniocaudal. L5-S1: Tiny central disc protrusion with small annular fissure. Moderate facet arthropathy. Slight en croachment traversing RIGHT greater than LEFT S1 nerve roots. Foramen are patent. Visualized pelvic bony structures: Normal. Paravertebral soft tissues: Normal. MR/MR lumbar spine wo con* [id number] IMPRESSION: 1. Mild lumbar curve. No acute compression. 2. Large central disc protrusion L4-5 with moderate to severe central canal st enosis. Effacement of the thecal sac. Recommend spine surgery consultation. Dis c material measures 7 mm in AP dimension. 3. Tiny central protrusion L5-S1 with a small annular fissure. Slight encroach ment on the traversing RIGHT greater than LEFT S1 nerve roots. 4. Mild to moderate facet arthropathy L3-L5.
== END 2024-07-01 08:41 | disposition home or self-care (01) ==
LOC: RAD 08:40
PROVIDERS: PCP Registered Nurse; Visit Provider Registered Nurse
DX: M51.16 Intervertebral disc disorders with radiculopathy, lumbar region (principal); M51.26 Other intervertebral disc displacement, lumbar region; M47.896 Other spondylosis, lumbar region; M47.898 Other spondylosis, sacral and sacrococcygeal region
CPT/HCPCS: 72148

== ENCOUNTER → 2024-10-20 10:33 | Outpatient (BNVA) | payer BC, MEDICAID, SELFPAY | PROVIDERS: PCP Registered Nurse | DX: J02.9 Acute pharyngitis, unspecified (principal) | CPT/HCPCS: 87880 ==

== ENCOUNTER → 2024-12-08 09:06 | Outpatient (BNVA) | payer BC, MEDICAID, SELFPAY | PROVIDERS: PCP Registered Nurse; Visit Provider Registered Nurse | DX: I10 Essential (primary) hypertension (principal) | CPT/HCPCS: 80048; 84443; 85025 ==

== ENCOUNTER 2024-12-19 13:02 | Emergency (ER) | payer BC, SELFPAY ==
--- NOTE | 2024-12-19 13:02 | XRR_ITS ---
PROCEDURE INFORMATION: Exam: XR Chest Exam date and time: 12/19/2024 1:31 PM Age: 34 years old Clinical indication: Chest pressure; Prior surgery; Surgery date: 6+ months; Surgery type: Breast reduction; Chest pain; HTN TECHNIQUE: Imaging protocol: Radiologic exam of the chest. Views: 1 view. COMPARISON: CR XR chest 1V portable [id number] 04/27/2023 11:09 PM FINDINGS: Lungs: Calcified granuloma in the right upper lobe. No focal consolidation. Pleural spaces: Unremarkable. No pleural effusion. No pneumothorax. Heart/Mediastinum: Unremarkable. No cardiomegaly. Bones/joints: Unremarkable. XR/XR chest 1V portable [id number] IMPRESSION: No acute cardiopulmonary abnormality.
[2024-12-19 13:31] LABS: Basophils % 0.4 %; Eosinophils # 0.1 10^3/uL (0.0-0.8); Eosinophils % 1.5 %; Hematocrit 37.1 % (36-47); Lymphocytes # 2.5 10^3/uL (0.8-4.8); Lymphocytes % 34.2 %; Mean Corpuscular HGB Conc 31.3 g/dL (30-55); Mean Corpuscular Hemoglobin 24.7 pg (27-33); Mean Corpuscular Volume 78.9 fl (85-98); Mean Platelet Volume 10.6 fL (7.4-10.4); Monocytes # 0.4 10^3/uL (0.2-0.9); Monocytes % 5.9 %; Neutrophils # 4.14 10^3/uL (1.8-7.7); Neutrophils % 57.7 %; Nucleated Red Blood Cells % 0 %; Platelet Count 309 10^3/cmm (157-399); Red Cell Distribution Width 14.8 % (12.1-15.1); White Blood Count 7.17 10^3/uL (3.29-11.43)
[2024-12-19 13:33] VITALS: BP 158/101; PULSE 78; RESP 18; TEMP 36.8; O2SAT 98; BMI 38.3
[2024-12-19 13:42] LABS: INR 0.85 (0.8-1.2)
[2024-12-19 13:45] VITALS: BP 162/99; PULSE 79; RESP 16; O2SAT 98
[2024-12-19 13:49] LABS: Alanine Aminotransferase 30 U/L (0-33); Albumin Level 4.5 g/dL (3.5-5.2); Alkaline Phosphatase 114 U/L (35-105); Aspartate Amino Transferase 23 U/L (0-32); Blood Urea Nitrogen 8 mg/dL (6-20); Calcium 9.3 mg/dL (8.5-10.5); Carbon Dioxide 26 mmol/L (22-29); Chloride 102 mmol/L (98-107); Creatinine Clr Calc Pharmacy 203.7561; Globulin 2.4 g/dL (1.3-4.6); Glomerular Filtration Rate 141.2 mL/min (90-130); Glucose 99 mg/dL (65-115); Lipase 29 U/L (13-60); Osmolality Calculated 278 mOsm/kg (285-295); Sodium 135 mmol/L (136-145); Total Bilirubin 0.2 mg/dL (0.15-1.2); Total Protein 6.9 g/dL (6.6-8.7)
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
[2024-12-19 13:50] LABS: Troponin(5th) Baseline < 6 ng/L (0-10)
[2024-12-19 14:15] VITALS: BP 162/99; PULSE 72; RESP 16; O2SAT 97
[2024-12-19] MEDS: ketorolac 30 mg/mL INJ 15 MG IVP (14:21)
[2024-12-19] MEDS: hyDRALAzine 20 mg/mL INJ 1 mL 10 MG IVP (14:32)
[2024-12-19 14:54] VITALS: BP 148/98; PULSE 72; RESP 16; O2SAT 100
== END 2024-12-19 14:55 | disposition home or self-care (01) ==
PROVIDERS: Emergency Provider Emergency Medicine; PCP Registered Nurse
DX: R07.9 Chest pain, unspecified (principal); I10 Essential (primary) hypertension
CPT/HCPCS: 36415; 71045; 80053; 83690; 84484; 85025; 85610; 96374; 96375; 99285; J0360; J1885